=== PATIENT | female | born 1970 | race Caucasian/White ===

== ENCOUNTER 2022-09-10 13:57 | Observation (INO) | payer BC ==
[2022-09-10] MEDS ORDERED: BABY ASPIRIN 81 MG CHEW PO ONE (14:41)
--- NOTE | 2022-09-10 14:42 | ERPHSYRPT ---
- History of Present Illness Time Seen by Provider: 09/10/22 14:39 Source: patient Exam Limitations: no limitations Patient Subjective Stated Complaint: pt states she woke up for work and felt like she was drunk. 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 Symptoms started at 1:30 AM this morning after she awoke for work. Patient states she felt drunk. Patient went to work. Patient states she was sent home because of slurred speech and facial droop. Patient states she did not think much of it. Patient's observed the slurred speech and facial droop and decided to bring patient to our ED for an evaluation. Patient is approximately 13 hours post symptom onset. Patient not a candidate for tPA at this time. Patient denies pain. No associated symptomology she voices no other complaints or concerns at this time. Portions of this note were created with voice recognition technology. There may be grammatical, spelling, punctuation or sound alike errors Timing/Duration: today Severity: moderate Modifying Factors: Improves With: nothing Associated Symptoms: denies symptoms Allergies/Adverse Reactions: No Known Drug Allergies Allergy (Unverified 09/10/22 14:00) Home Medications: Amlodipine Besylate [Norvasc] 10 mg PO DAILY 09/10/22 [History] Aspirin [Low Dose Aspirin EC] 81 mg PO DAILY 09/10/22 [History] Atenolol 50 mg [Tenormin 50 mg] 50 mg PO DAILY 09/10/22 [History] Atorvastatin Calcium [Lipitor 20MG Tablet] 20 mg PO DAILY 09/10/22 [History] Levothyroxine Sodium [Synthroid] 175 mcg PO DAILY 09/10/22 [History] Paroxetine HCl 20 mg [Paxil 20 MG] 20 mg PO DAILY 09/10/22 [History] Hx Tetanus, Diphtheria Vaccination/Date Given: No Hx Influenza Vaccination/Date Given: No Hx Pneumococcal Vaccination/Date Given: No Travel Risk - International Travel Have you traveled outside of the country in past 3 weeks: No - Coronavirus Screening Are you exhibiting any of the following symptoms?: No Close contact with a COVID-19 positive Pt in past 14-21 Days: No - Vaccine Status Have you recieved a Covid-19 vaccination: Yes Manager Garden: Unknown - Vaccination Dates Dates if Unknown: 2020 - Review of Systems Constitutional: No Symptoms, No Fever, No Chills Eyes: No Symptoms Ears, Nose, & Throat: No Symptoms Respiratory: No Symptoms, No Cough, No Dyspnea Cardiac: No Symptoms, No Chest Pain, No Edema, No Syncope Abdominal/Gastrointestinal: No Symptoms, No Abdominal Pain, No Nausea, No Vomiting, No Diarrhea Genitourinary Symptoms: No Symptoms, No Dysuria Musculoskeletal: No Symptoms, No Back Pain, No Neck Pain Skin: No Symptoms, No Rash Neurological: No Symptoms, No Dizziness, No Focal Weakness, No Sensory Changes Psychological: No Symptoms Endocrine: No Symptoms Hematologic/Lymphatic: No Symptoms Immunological/Allergic: No Symptoms All Other Systems: Reviewed and Negative - Past Medical History Pertinent Past Medical History: Yes Cardiac History: High Cholesterol, Hypertension Endocrine Medical History: Hypothyroidism Psycho-Social History: Anxiety - Past Surgical History Past Surgical History: Yes Musculoskeletal: Orthopedic Surgery Other Surgical History: rt hip replacement, ablasion - Social History Smoking Status: Current every day smoker How long have you smoked: 20 Exposure to second hand smoke: Yes Drug Use: none Patient Lives Alone: No - Nursing Vital Signs Nursing Vital Signs: Initial Vital Signs Temperature 97.8 F 09/10/22 14:03 Pulse Rate 76 09/10/22 14:03 Respiratory Rate 20 09/10/22 14:03 Blood Pressure 189/102 09/10/22 14:03 O2 Sat by Pulse Oximetry 99 09/10/22 14:03 Pain Scale Pain Intensity 0 - Physical Exam General Appearance: no apparent distress, alert Eye Exam: PERRL/EOMI, eyes nml inspection Ears, Nose, Throat Exam: normal ENT inspection, TMs normal, pharynx normal, moist mucous membranes Neck Exam: normal inspection, non-tender, supple, full range of motion Respiratory Exam: normal breath sounds, lungs clear, airway intact, No respiratory distress Cardiovascular Exam: regular rate/rhythm, normal heart sounds, normal peripheral pulses Gastrointestinal/Abdomen Exam: soft, normal bowel sounds, No tenderness, No mass Back Exam: normal inspection, normal range of motion, No CVA tenderness, No vertebral tenderness Extremity Exam: normal inspection, normal range of motion, pelvis stable Neurologic Exam: alert, oriented x 3, cooperative, normal mood/affect, sensation nml, other (Slight weakness of right upper lower extremity versus the left. There appears to be a right upper extremity pronator drift), No motor deficits Skin Exam: normal color, warm, dry, No rash Lymphatic Exam: No adenopathy SpO2 Interpretation: normal SpO2: 99 O2 Delivery: Room Air - Course Nursing assessment & vital signs reviewed: Yes EKG Interpreted by Me: RATE (69), Sinus Rhythm, NORMAL AXIS, NORMAL INTERVALS - CT Exams Head CT Interpretation: Tele-radiologist Report (Chronic lacunar infarct, chronic cysticencephalomalacic lesion) Soft Tissue Neck CT Interpretation: Tele-radiologist Report (CT angio neck reveals atherosclerotic changes on both sides with significant stenotic lesions bilaterally of more than 50%.) Other CT Interpretation: Tele-radiologist Report (Grossly unremarkable CT angiography of the cerebral arteries.) Ordered Tests: Active Orders 24 hr Category Date Time Status 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'S 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 STAT Care 09/10/22 14:37 Active EKG-ER Only STAT Care 09/10/22 14:36 Active IV Insertion STAT Care 09/10/22 14:36 Active Pulse Oximetry (ED) STAT Care 09/10/22 14:[address] ANGIOGRAPHY NECK [CT] Stat Exams 09/10/22 15:33 Completed CTA HEAD W AND/OR WO CONTRAST [CT] Stat Exams 09/10/22 15:32 Completed HEAD WITHOUT CONTRAST [CT] Stat Exams 09/10/22 13:59 Completed CBC W DIFF Stat Lab 09/10/22 14:07 Completed CMP Stat Lab 09/10/22 14:07 Completed ETHYL ALCOHOL Stat Lab 09/10/22 14:07 Completed HCG QUALITATIVE, URINE Stat Lab 09/10/22 Completed NT PRO BNPII Stat Lab 09/10/22 14:07 Completed TROPONIN Q4H Lab 09/10/22 14:07 Completed TROPONIN Q4H Lab 09/10/22 18:52 Completed TROPONIN Q4H Lab 09/10/22 22:45 Ordered UA W/RFX UR CULTURE Stat Lab 09/10/22 15:48 Completed Transfer Order Routine Transfer 09/10/22 Ordered Medication Summary Generic Name Dose Route Start Last Admin Trade Name Elie PRN Reason Stop Dose Admin Sodium Chloride 1,000 mls @ 75 mls/hr 09/10/22 14:45 09/10/22 15:20 Sodium Chloride 0.9% 1000 Ml IV 10/10/22 14:44 75 mls/hr .[id number] DENISE Administration Discontinued Medications Generic Name Dose Route Start Last Admin Trade Name Elie PRN Reason Stop Dose Admin Aspirin 243 mg 09/10/22 14:41 09/10/22 15:20 Aspirin 81 Mg Tab.Chew PO 09/10/22 14:42 243 mg STAT ONE Administration Aspirin Confirm 09/10/22 15:19 Aspirin 81 Mg Tab.Chew Administered 09/10/22 15:20 Dose 243 mg .ROUTE .STK-MED ONE Lab/Rad Data: Laboratory Result Diagrams 09/10/22 14:07 09/10/22 14:07 Laboratory Results 09/10/22 09/10/22 09/10/22 Range/Units Unknown 18:52 15:48 WBC (4.0-10.5) x10^3/uL RBC (4.1-5.4) x10^6/uL Hgb (12.0-16.0) g/dL Hct (35-47) % MCV (78-100) fL MCH (26-32) pg MCHC (32-36) g/dL RDW (11.5-14.0) % Plt Count (150-450) x10^3/uL MPV (7.5-11.0) fL Gran % (36.0-66.0) % Immature Gran % (Auto) (0.00-0.4) % Nucleat RBC Rel Count (0.00-0.1) % Eos # (Auto) (0-0.5) x10^3/uL Immature Gran # (Auto) (0.00-0.03) x10^3u/L Absolute Lymphs (auto) (1.0-4.6) x10^3/uL Absolute Monos (auto) (0.0-1.3) x10^3/uL Absolute Nucleated RBC (0.00-0.01) x10^3u/L Lymphocytes % (24.0-44.0) % Monocytes % (0.0-12.0) % Eosinophils % (0.00-5.0) % Basophils % (0.0-0.4) % Absolute Granulocytes (1.4-6.9) x10^3/uL Basophils # (0-0.4) x10^3/uL Sodium (137-145) mmol/L Potassium (3.5-5.1) mmol/L Chloride (98-107) mmol/L Carbon Dioxide (22-30) mmol/L Anion Gap (5-15) MEQ/L BUN (7-17) mg/dL Creatinine (0.52-1.04) mg/dL Estimated GFR ML/MIN Glucose (74-106) mg/dL Calcium (8.4-10.2) mg/dL Total Bilirubin (0.2-1.3) mg/dL AST (14-36) U/L ALT (0-35) U/L Alkaline Phosphatase (38-126) U/L Troponin I < 0.012 (0.000-0.034) ng/mL NT-Pro-B Natriuret Pep (<300) pg/mL Serum Total Protein (6.3-8.2) g/dL Albumin (3.5-5.0) g/dL Urine Color Dark Yellow A (Yellow) Urine Appearance Clear (Clear) Urine pH 5.5 (4.6-8.0) Ur Specific [place] >=1.030 A (1.005-1.030) Urine Protein Negative (Negative) Urine Glucose (UA) Negative (Negative) mg/dL Urine Ketones Trace A (Negative) Urine Blood Negative (Negative) Urine Nitrite Negative (Negative) Urine Bilirubin Negative (Negative) Urine Urobilinogen 0.2 (0.2) mg/dL Ur Leukocyte Esterase Negative (Negative) U Hyaline Cast (Auto) NONE SEEN (0-2) /LPF Urine Microscopic RBC 0-2 (0-5) /HPF Urine Microscopic WBC 0-2 (0-5) /HPF Ur Epithelial Cells None Seen (None Seen) /HPF Urine Bacteria None Seen (None Seen) /HPF Urine Culture Reflexed NO (NO) Urine HCG, Qual NEGATIVE (NEGATIVE) Ethyl Alcohol (0-10) mg/dL 09/10/22 09/10/22 09/10/22 Range/Units 14:07 14:07 14:07 WBC 10.2 (4.0-10.5) x10^3/uL RBC 4.37 (4.1-5.4) x10^6/uL Hgb 13.1 (12.0-16.0) g/dL Hct 41.1 (35-47) % MCV 94.1 (78-100) fL MCH 30.0 (26-32) pg MCHC 31.9 L (32-36) g/dL RDW 13.1 (11.5-14.0) % Plt Count 382 (150-450) x10^3/uL MPV 9.5 (7.5-11.0) fL Gran % 73.9 H (36.0-66.0) % Immature Gran % (Auto) 0.4 (0.00-0.4) % Nucleat RBC Rel Count 0.0 (0.00-0.1) % Eos # (Auto) 0.09 (0-0.5) x10^3/uL Immature Gran # (Auto) 0.04 H (0.00-0.03) x10^3u/L Absolute Lymphs (auto) 1.95 (1.0-4.6) x10^3/uL Absolute Monos (auto) 0.55 (0.0-1.3) x10^3/uL Absolute Nucleated RBC 0.00 (0.00-0.01) x10^3u/L Lymphocytes % 19.0 L (24.0-44.0) % Monocytes % 5.4 (0.0-12.0) % Eosinophils % 0.9 (0.00-5.0) % Basophils % 0.4 (0.0-0.4) % Absolute Granulocytes 7.57 H (1.4-6.9) x10^3/uL Basophils # 0.04 (0-0.4) x10^3/uL Sodium 142 (137-145) mmol/L Potassium 3.6 (3.5-5.1) mmol/L Chloride 103 (98-107) mmol/L Carbon Dioxide 27 (22-30) mmol/L Anion Gap 16.8 H (5-15) MEQ/L BUN 22 H (7-17) mg/dL Creatinine 0.80 (0.52-1.04) mg/dL Estimated GFR > 60.0 ML/MIN Glucose 151 H (74-106) mg/dL Calcium 9.6 (8.4-10.2) mg/dL Total Bilirubin 0.50 (0.2-1.3) mg/dL AST 32 (14-36) U/L ALT 26 (0-35) U/L Alkaline Phosphatase 82 (38-126) U/L Troponin I < 0.012 (0.000-0.034) ng/mL NT-Pro-B Natriuret Pep 82.0 (<300) pg/mL Serum Total Protein 8.7 H (6.3-8.2) g/dL Albumin 4.6 (3.5-5.0) g/dL Urine Color (Yellow) Urine Appearance (Clear) Urine pH (4.6-8.0) Ur Specific [place] (1.005-1.030) Urine Protein (Negative) Urine Glucose (UA) (Negative) mg/dL Urine Ketones (Negative) Urine Blood (Negative) Urine Nitrite (Negative) Urine Bilirubin (Negative) Urine Urobilinogen (0.2) mg/dL Ur Leukocyte Esterase (Negative) U Hyaline Cast (Auto) (0-2) /LPF Urine Microscopic RBC (0-5) /HPF Urine Microscopic WBC (0-5) /HPF Ur Epithelial Cells (None Seen) /HPF Urine Bacteria (None Seen) /HPF Urine Culture Reflexed (NO) Urine HCG, Qual (NEGATIVE) Ethyl Alcohol < 10 (0-10) mg/dL - Progress Progress: improved Progress Note: Case discussed with Dr. العراقي who excepts admission to observation. I spoke to Dr. العراقي at 7:26 PM. 09/10/22 19:29 Patient is a 52-year-old female presents to our ED with strokelike symptoms. Patient outside of the window for tPA. Physical exam reveals slurred speech and right upper lower extremity weakness. Telemetry neuro consulted. Patient is not a tPA candidate. CT head without contrast reveals old stroke which patient was not aware of. CTA head neck negative for large vessel occlusion. However there is some carotid stenotic lesion observed. CBC CMP EtOH BNP troponin all negative. UA negative. Patient received aspirin and IV fluids. Patient will be admitted for further evaluation and treatment including MRI. Case discussed Dr. العراقي excepts admission to observation. Plan of care discussed with patient. She agrees to admission [facility] for further evaluation and treatment. Portions of this note were created with voice recognition technology. There may be grammatical, spelling, punctuation or sound alike errors Complexity of problem addressed is high. Severe exacerbation with threat to bodily function. Patient appears to have experienced a stroke however patient outside of therapeutic window for tPA. No critical care time. Complexity data reviewed and analyzed is extensive. Test ordered reviewed and analyzed by Dr. Devine. Management discussed with teleneurologist as well as admitting physician Dr. العراقي. Patient will be admitted for further evaluation and treatment. Risk of complication and or risk morbidity/mortality of patient management is high. Patient will require hospitalization for further evaluation and treatment. Patient will be admitted [facility] for further evaluation and treatment. Plan of care established via shared decision making. Vital stable. Patient voices no other complaints or concerns at this time. Patient agrees with plan of care. Portions of this note were created with voice recognition technology. There may be grammatical, spelling, punctuation or sound alike errors 09/10/22 19:[address] Darby Will see patient in: hospital (observation) Counseled pt/family regarding: lab results, diagnosis, rad results - Departure Departure Disposition: Observation Clinical Impression: Chronic left lacunar infarct, cystic encephaloalacic lesion Right, Stroke Condition: Stable Critical Care Time: No Referrals: LUIS CAMPA MD [Primary Care Provider] - Follow up/PCP as directed
[2022-09-10] MEDS ORDERED: Sodium Chloride 0.9% 1000 ML 1,000 ML IV SCH (14:45)
[2022-09-10 15:11] LABS: Absolute Neutrophil Ct (ANC) 7.57 x10^3/uL (1.4-6.9); BASOPHIL % 0.4 % (0.0-0.4); Basophil (Absolute #) 0.04 x10^3/uL (0-0.4); Eosinophil % 0.9 % (0.00-5.0); Eosinophil (Absolute #) 0.09 x10^3/uL (0-0.5); Hematocrit 41.1 % (35-47); Hemoglobin 13.1 g/dL (12.0-16.0); IMMATURE GRAN # 0.04 x10^3u/L (0.00-0.03); IMMATURE GRAN % 0.4 % (0.00-0.4); Lymphocyte (Absolute #) 1.95 x10^3/uL (1.0-4.6); Mean Cell Volume 94.1 fL (78-100); Mean Corpuscular Hgb Concent. 31.9 g/dL (32-36); Mean Platelet Volume 9.5 fL (7.5-11.0); Monocyte (Absolute #) 0.55 x10^3/uL (0.0-1.3); Monocytes % 5.4 % (0.0-12.0); Neutrophil % 73.9 % (36.0-66.0); Platelet Count 382 x10^3/uL (150-450); Red Blood Count 4.37 x10^6/uL (4.1-5.4); Red Cell Distribution Width 13.1 % (11.5-14.0); White Blood Count 10.2 x10^3/uL (4.0-10.5)
--- NOTE | 2022-09-10 15:15 | XRAY ---
CLINICAL HISTORY:slurred speech, rt side weakness COMPARISON:None; TECHNIQUES:Contiguous axial images are obtained from the skull base to the vertex without intravenous contrast. Reformatted images were performed; FINDINGS: There is a hypodense lesion noted in the left basal ganglia measuring 7.3 x 4.[address] attenuation value is +16 HU. There is an ill-defined hypodense lesion noted in the subcortical white matter of the right frontal lobe extending into the perisylvian cortex with an average CT attenuation value of +11 HU. No evidence of acute cortical infarction, hemorrhage, mass or mass effect. Normal ventricular system. No abnormal extra-axial fluid collections are present. The posterior fossa is unremarkable. The skull base and calvarium are intact. The included portions of the paranasal sinuses and mastoid air cells are clear. IMPRESSION: 1. A hypodense lesion noted in the left basal ganglia measuring 7.3 x 4.6 mm with an average CT attenuation value is +16 HU, Suggestive of chronic lacunar infarct. 2. An ill-defined hypodense lesion noted in the subcortical white matter of the right frontal lobe extending into the perisylvian cortex with an average CT attenuation value of +11 HU, Consistent likely with chronic cystic encephalomalacic changes. 3. No territorial infarct noted. 4. Small early-stage acute ischemic lesion cannot be excluded by CT study. In case of clinical concern, further evaluation with MRI is recommended. No hemorrhage, mass or edema. Electronically Signed by: Savi Chowdhury MD. (09/10/2022 14:11:35 MANAGER WATER)
[2022-09-10] MEDS ORDERED: BABY ASPIRIN 81 MG CHEW ONE (15:19)
[2022-09-10] MEDS ORDERED: Sodium Chloride 0.9% 1000 ML 1,000 ML ONE (15:19)
[2022-09-10 15:32] LABS: ALBUMIN 4.6 g/dL (3.5-5.0); ALKALINE PHOSPHATASE 82 U/L (38-126); ANION GAP 16.8 MEQ/L (5-15); BLOOD UREA NITROGEN 22 mg/dL (7-17); CHLORIDE 103 mmol/L (98-107); Calcium 9.6 mg/dL (8.4-10.2); Carbon Dioxide 27 mmol/L (22-30); EST GLOMERULAR FILTRATION RATE > 60.0 ML/MIN; ETHYL ALCOHOL < 10 mg/dL (0-10); Glucose 151 mg/dL (74-106); Potassium 3.6 mmol/L (3.5-5.1); SGOT/AST 32 U/L (14-36); SGPT/ALT 26 U/L (0-35); SODIUM 142 mmol/L (137-145); Total Protein 8.7 g/dL (6.3-8.2)
[2022-09-10 15:52] LABS: HCG URINE TEST NEGATIVE (NEGATIVE)
[2022-09-10 15:56] LABS: Appearance Clear (Clear); Bacteria None Seen /HPF (None Seen); Bilirubin Negative (Negative); Blood Negative (Negative); Epithelial Cells None Seen /HPF (None Seen); Glucose, Urine Negative (Negative); Hyaline Casts NONE SEEN /LPF (0-2); Ketones Trace (Negative); Leukocyte Esterase Negative (Negative); Nitrite Negative (Negative); Ph 5.5 (4.6-8.0); Protein,Urine Dip Negative (Negative); RBC 0-2 /HPF (0-5); Specific Gravity >=1.030 (1.005-1.030); Urobilinogen 0.2 mg/dL (0.2); WBC 0-2 /HPF (0-5)
[2022-09-10 15:59] LABS: ADD URINE CULTURE? NO (NO)
--- NOTE | 2022-09-10 19:08 | XRAY ---
CLINICAL HISTORY:Stroke; COMPARISON:None; TECHNIQUES:Contiguous multislice CT angiography of the brain was performed in the axial plane with multiplanar and 3D reconstructions after administration of 80 cc of Isovue 370; FINDINGS: Normal course and caliber of distal internal carotid arteries and their branches on both sides with no detectable occlusion or significant luminal stenosis. Within normal opacification of the cerebral arteries forming the [place] with no significant stenosis or arterial occlusion. Normal CTA appearance of vertebro-basilar system with no significant stenosis or extrinsic compression noted. No detectable intracranial aneurysms or arteriovenous malformation. Ill-defined hypodensity in the right frontoparietal region, probably related to chronic ischemic insult. Hypodensity in the left basal ganglia region representing chronic/lacunar infarct. IMPRESSION: Grossly unremarkable CT angiography of the cerebral arteries. Electronically Signed by: Savi Chowdhury MD. (09/10/2022 17:58:43 MATTRESS FILLER)
--- NOTE | 2022-09-10 19:12 | XRAY ---
CLINICAL HISTORY:Stroke; COMPARISON:None; TECHNIQUES:Contiguous, multislice CT angiography of the neck was performed in the axial plane with multiplanar and 3D reconstructions with the administration of 80 cc Isovue 370; FINDINGS: Normal course of both common carotid arteries, internal and external carotid arteries. Atherosclerotic changes seen more evident at carotid bulbs showing calcified plaques on both sides with significant stenotic bilaterally, more than 50 % lumen narrowing. No occluded segments. Within normal opacification of the cerebral arteries forming the [place] with no significant stenosis or arterial occlusion. Normal CTA appearance of the vertebrobasilar system with no significant stenosis or extrinsic compression noted. No detectable intracranial aneurysms or arteriovenous malformation. IMPRESSION: Atherosclerotic changes seen more evident at carotid bulbs showing calcified plaques on both sides with significant stenotic bilaterally, more than 50 % lumen narrowing, correlation with carotid Doppler is advised. No occlusion. Electronically Signed by: Savi Chowdhury MD. (09/10/2022 18:01:53 CUTTING MACHINE TENDER HELPER;)
[2022-09-10] MEDS ORDERED: Senokot-S Tablet PO PRN (20:49)
[2022-09-10] MEDS ORDERED: MILK OF MAGNESIA 30 ML PO PRN (20:49)
[2022-09-10] MEDS ORDERED: Zofran 4 MG/2 ML VIAL IV PRN (20:49)
[2022-09-10] MEDS ORDERED: TYLENOL 325 MG PO PRN (20:49)
[2022-09-10] MEDS ORDERED: MAALOX ES 30 ML UNIT DOSE PO PRN (20:49)
[2022-09-10] MEDS ORDERED: LIPITOR 40MG PO ONE (22:40)
[2022-09-10] MEDS ORDERED: ZOCOR 20MG PO ONE (22:40)
[2022-09-11] MEDS ORDERED: Sodium Chloride 0.9% 1000 ML 1,000 ML ONE (04:14)
[2022-09-11 05:46] LABS: Risk Ratio 4.4
[2022-09-11] MEDS ORDERED: SYNTHROID 25 MCG ONE (05:57)
[2022-09-11] MEDS ORDERED: SYNTHROID 150 MCG ONE (05:57)
[2022-09-11] MEDS ORDERED: SYNTHROID 125 MCG PO ONE (07:00)
[2022-09-11] MEDS ORDERED: SYNTHROID 50 MCG PO SCH (07:00)
[2022-09-11] MEDS ORDERED: SYNTHROID 150 MCG PO SCH (07:00)
[2022-09-11] MEDS ORDERED: SYNTHROID 25 MCG PO SCH (07:00)
[2022-09-11] MEDS ORDERED: Ecotrin 325 MG PO SCH (13:00)
[2022-09-11] MEDS ORDERED: NORVASC 5 MG PO SCH (13:00)
[2022-09-11] MEDS ORDERED: TENORMIN 50 MG PO SCH (13:00)
[2022-09-11] MEDS ORDERED: Paxil 20 MG PO SCH (13:00)
[2022-09-11] MEDS ORDERED: ZOCOR 20MG PO SCH (13:00)
[2022-09-11 16:02] VITALS: BP 141/69; PULSE 50; O2SAT 98
--- NOTE | 2022-09-11 16:17 | PCM.SSS ---
History of Present Illness - Chief Complaint Chief Complaint: CVA History of Present Illness: is a 52 year old female who presented to the hospital with slurred speech and right sided facial droop. She stated that when she awoke for work that she felt "drunk" and noted that her symptoms stared at 1:30am. She was sent home from work due to her slurred speech and subsequently presented to the ED. She denied any weakness or numbness in her upper or lower extremities, and denied visual disturbances. She was deemed to not be a tPA candidate since she presented 13 hours after symptom onset. The patient was seen and examined via telemedicine. The entirety of this encounter was performed via telemedicine. The patient consented to this telemedicine encounter. - Review of Systems Constitutional: No Symptoms Eyes: No Symptoms Ears, Nose, & Throat: No Symptoms Respiratory: No Symptoms Cardiac: No Symptoms Abdominal/Gastrointestinal: No Symptoms Genitourinary Symptoms: No Symptoms Musculoskeletal: No Symptoms Skin: No Symptoms Neurological: Focal Weakness (Right sided facial weakness), Speech Changes Psychological: No Symptoms Endocrine: No Symptoms Hematologic/Lymphatic: No Symptoms Immunological/Allergic: No Symptoms All Other Systems: Reviewed and Negative Medications & Allergies Home Medications: Home Medication List Amlodipine Besylate [Norvasc] 10 mg PO DAILY 09/10/22 [History Confirmed 09/10/22] Atenolol 50 mg [Tenormin 50 mg] 50 mg PO DAILY 09/10/22 [History Confirmed 09/10/22] Levothyroxine Sodium [Synthroid] 175 mcg PO DAILY 09/10/22 [History Confirmed 09/10/22] Paroxetine HCl 20 mg [Paxil 20 MG] 20 mg PO DAILY 09/10/22 [History Confirmed 09/10/22] Aspirin EC 325 mg [Ecotrin 325 MG] 325 mg PO DAILY #30 tablet 09/11/22 [Rx] Atorvastatin Calcium [Lipitor 20MG Tablet] 40 mg PO DAILY #0 09/11/22 [Rx Confir med 09/10/22] Allergies/Adverse Reactions: Allergies Allergy/AdvReac Type Severity Reaction Status Date / Time No Known Drug Allergies Allergy Unverified 09/10/22 14:00 - Past Medical History Past Medical History: Yes Cardiac History: High Cholesterol, Hypertension Endocrine Medical History: Hypothyroidism Pyscho-Social History: Anxiety - Female History Are you now?: No - Past Surgical History Past Surgical History: Yes Musculskeletal Surgical Hx: Orthopedic Surgery Other Surgical History: rt hip replacement, ablasion - Social History Smoking Status: Current every day smoker How long have you smoked: 24 yrs Exposure to second hand smoke: Yes Alcohol: None Drug Use: none - Physical Exam Vital Signs: Vital Signs - 24 hr Temp Pulse Resp BP BP Pulse Ox 09/11/22 16:00 97.5 F 50 L 17 141/69 98 09/11/22 12:00 96.7 F 67 16 169/75 97 09/11/22 07:53 97.5 F 68 17 166/77 95 09/11/22 04:00 97.5 F 68 17 134/63 97 09/10/22 23:44 97.7 F 70 21 165/84 97 09/10/22 21:15 97.5 F 55 L 20 152/67 96 09/10/22 20:10 58 L 16 155/61 97 09/10/22 20:00 66 14 98 09/10/22 19:50 62 14 95 09/10/22 19:40 68 16 97 09/10/22 19:36 99 09/10/22 19:33 63 15 96 09/10/22 19:00 75 20 178/95 98 09/10/22 18:31 166/103 09/10/22 18:00 70 20 170/97 97 09/10/22 17:30 62 14 155/80 97 09/10/22 17:18 69 15 155/95 97 09/10/22 16:30 148/80 General Appearance: no apparent distress, alert Neurologic Exam: alert, oriented x 3 Eye Exam: PERRL/EOMI, eyes nml inspection Ears, Nose, Throat Exam: normal ENT inspection Neck Exam: normal inspection, non-tender, supple, full range of motion Respiratory Exam: normal breath sounds Cardiovascular Exam: regular rate/rhythm, normal heart sounds Gastrointestinal/Abdomen Exam: soft, normal bowel sounds Extremity Exam: normal inspection, normal range of motion Skin Exam: normal color Results - Labs Lab/Micro Results: Lab Results-Last 24 Hours 09/10/22 09/10/22 09/11/22 Range/Units 18:52 23:10 04:29 Troponin I < 0.012 < 0.012 (0.000-0.034) ng/mL Triglycerides 123 (30-150) mg/dL Cholesterol 177 (50-200) mg/dL LDL Cholesterol 106 H (30-100) mg/dL HDL Cholesterol 40 (40-60) mg/dL Heart Disease Risk Ratio 4.4 - Radiology Impressions Radiology Exams & Impressions: Radiology Procedures Category Date Time Status CT ANGIOGRAPHY NECK [CT] Stat Exams 09/10/22 15:33 Completed CTA HEAD W AND/OR WO CONTRAST [CT] Stat Exams 09/10/22 15:32 Completed HEAD WITHOUT CONTRAST [CT] Stat Exams 09/10/22 13:59 Completed Assessment/Plan (1) Dysarthria Status: Acute Assessment & Plan: Resolved. Code(s): R47.1 - DYSARTHRIA AND ANARTHRIA (2) Facial droop Status: Acute Assessment & Plan: resolved Code(s): R29.810 - FACIAL WEAKNESS (3) Stroke Status: Acute Assessment & Plan: CT negative for stroke but the patient does appear to have old strokes. Will increase to full dose ASA and increase statin dose. Code(s): I63.9 - CEREBRAL INFARCTION, UNSPECIFIED Hospital Summary - Hospital Course Hospital Course: Symptoms have all resolved. CT negative for acute stroke but clearly demonstrates old strokes. Attempted to obtain a MRI but cannot be performed until the evening and the patient is requesting discharge. Will arrange for outpatient MRI. Will need to follow up with PCP and would benefit from outpatient neurology referral; also offered teleneurology consultation but the patient is not amenable to waiting for this. Recommending an increase in ASA to full dose and increasing the atorvastatin to 40 mg daily due to LDL >100. - Vitals & Intake/Output Vital Signs: Vital Signs Temperature 97.5 F 09/11/22 16:00 Pulse Rate 50 L 09/11/22 16:00 Respiratory Rate 17 09/11/22 16:00 Blood Pressure 141/69 09/11/22 16:00 O2 Sat by Pulse Oximetry 98 09/11/22 16:00 Intake & Output: Intake & Output 09/09/22 09/10/22 09/11/22 09/12/22 11:59 11:59 11:59 11:59 Intake Total 827 Output Total 1100 Balance -273 Weight 92.7 kg - Lab Result Diagrams: 09/10/22 14:07 09/10/22 14:07 Lab Results-Last 24 Hrs: Lab Results-Last 24 Hours 09/10/22 09/10/22 09/11/22 Range/Units 18:52 23:10 04:29 Troponin I < 0.012 < 0.012 (0.000-0.034) ng/mL Triglycerides 123 (30-150) mg/dL Cholesterol 177 (50-200) mg/dL LDL Cholesterol 106 H (30-100) mg/dL HDL Cholesterol 40 (40-60) mg/dL Heart Disease Risk Ratio 4.4 - Radiology Exams Ordered Rad Exams-Entire Visit: Radiology Procedures Category Date Time Status CT ANGIOGRAPHY NECK [CT] Stat Exams 09/10/22 15:33 Completed CTA HEAD W AND/OR WO CONTRAST [CT] Stat Exams 09/10/22 15:32 Completed HEAD WITHOUT CONTRAST [CT] Stat Exams 09/10/22 13:59 Completed - Procedures and Test Procedures and Tests throughout Hospitalization: Therapy Orders & Screens 09/10/22 21:37 OT Screen per Nursing Assess ONCE Comment: Protocol Order Physician Instructions: Greater than 3 points order OT Admission Screening Reason For Exam: Triggered on Admission Diagnosis: CVA Open Wound/Cellutlitis/Pressure Ulcers: No Acute Fx/ORIF/Change in wt bearing status: No Severe MUSCULOSKELETAL pain: No ADL Dysfunction: No Acute CVA w/Hemiparesis/Hemiplegia: Yes Decreased Functional Mobility/Strength: Yes Sprain/Strain: No Acute Post-op Mobility Dysfunction: No Total Points: 6 PT Screen per Nursing Assess ONCE Comment: Protocol Order Physician Instructions: Greater than 3 points order PT Admission Screenin Reason For Exam: Triggered on Admission Diagnosis: CVA Open Wound/Cellutlitis/Pressure Ulcers: No Acute Fx/ORIF/Change in wt bearing status: No Severe MUSCULOSKELETAL pain: No ADL Dysfunction: No Acute CVA w/Hemiparesis/Hemiplegia: Yes Decreased Functional Mobility/Strength: Yes Sprain/Strain: No Acute Post-op Mobility Dysfunction: No Total Points: 6 Smoking Cessation Education ONCE Comment: Diagnosis: CVA Smoking Status: Current every day smoker How long have you smoked: 24 yrs Have you smoked in the past 12 months: Yes Approximately how many cigarettes per day: 1-1.5 ppd Do you dip or chew tobacco: No 09/11/22 05:00 EKG DAILY Comment: Diagnosis: CVA 09/12/22 00:50 EKG DAILY Comment: Diagnosis: CVA 09/13/22 05:00 EKG DAILY Comment: Diagnosis: CVA 09/14/22 05:00 EKG DAILY Comment: Diagnosis: CVA - Discharge Disposition: Home, Self-Care Condition: Stable Prescriptions: New Aspirin EC 325 mg [Ecotrin 325 MG] 325 mg PO DAILY #30 tablet Continue Paroxetine HCl 20 mg [Paxil 20 MG] 20 mg PO DAILY Atenolol 50 mg [Tenormin 50 mg] 50 mg PO DAILY Levothyroxine Sodium [Synthroid] 175 mcg PO DAILY Amlodipine Besylate [Norvasc] 10 mg PO DAILY Changed Atorvastatin Calcium [Lipitor 20MG Tablet] 40 mg PO DAILY #0 Discontinued Aspirin [Low Dose Aspirin EC] 81 mg PO DAILY Instructions: Transient Ischemic Attack (DC), High Cholesterol (DC) Additional Instructions: DR. CARRASQUILLO OFFICE HAS BEEN CONTACTED AND WILL CALL YOU TO SCHEDULE A FOLLOW UP APPOINTMENT. OUTPATIENT BRAIN MRI SCHEDULED FOR 09/25/22 @ 0800 - NOTHING BY MOUTH AT MIDNIGHT AND BRING A COPY OF YOUR MOST RECENT LABS. TALK TO DR. CAMPA ABOUT REFERRING YOU TO A NEUROLOGIST. Follow up with: LUIS CAMPA MD [Primary Care Provider] - (OFFICE WILL CALL PATIENT WITH APPOINTMENT) Forms: Discharge Instructions, Work/School Release Form
[2022-09-12] MEDS ORDERED: NON-FORMULARY ITEM (Atorvastatin Calcium 20 MG Tab) PO SCH (10:00)
[2022-09-12] MEDS ORDERED: NON-FORMULARY ITEM (Amlodipine Besylate [Norvasc] 10 MG Tablet) PO SCH (10:00)
== END 2022-09-11 15:52 | disposition home or self-care (01) ==
LOC: ED 13:57 → MED SURG 20:41
PROVIDERS: ADMIT Family Medicine; ATTEND Family Medicine
DX: R47.1 Dysarthria and anarthria (principal); R29.810 Facial weakness; I63.9 Cerebral infarction, unspecified; I10 Essential (primary) hypertension; E78.5 Hyperlipidemia, unspecified; Z79.899 Other long term (current) drug therapy; Z20.828 Contact with and (suspected) exposure to other viral communicable diseases; Z72.0 Tobacco use
CPT/HCPCS: 36000; 36415; 70450; 70496; 70498; 80053; 80061; 81001; 81025; 82077; 83721; 83880; 84484; 85025; 93005; 93041; 93268; 94760; 99285; Q3014; A9270-GY; G0378